=== PATIENT | female | born 1975 | race Two or more races ===

== ENCOUNTER 2025-03-08 22:45 | Emergency (ER) | payer MEDICAID, SELFPAY ==
[2025-03-08 23:04] VITALS: BP 128/76; PULSE 74; RESP 18; TEMP 36.8; O2SAT 99; BMI 22.3
--- NOTE | 2025-03-08 23:42 | XR_ITS ---
Examination: CT brain head without contrast. 2-D sagittal coronal reconstructions Date and time of exam:March 08, 2025 at 1153 hours INDICATIONS: Headaches 5 days CTDI: vol (mGy):43 DLP: (mGycm):846 Technique: Multiple CT axial sections of the brain have been obtained, 5 mm slice thickness. Contrast has not been administered. 2-D sagittal, coronal reconstructions have been obtained Low dose protocols were performed. One or more of the following dose reduction techniques were used; automated exposure control, adjustment of the mA and/or KV according to patient size, use of iterative reconstruction technique. Findings: No significant ventricular enlargement. Intra-axial or extra-axial hemorrhage density is not seen. No mass effect or midline shift Basal cisterns are not remarkable. Fourth ventricle is midline. Cranial vault intact. Impression: Negative for acute hemorrhage, mass effect or midline shift
--- NOTE | 2025-03-08 23:47 | EDNOTE_ITS ---
<Statement entered by La Melchor MD - 03/09/25 18:32> As co-signing physician, I was present and available for consult prn. I concur with the plan and care as documented by the midlevel provider. ED Headache RME/HPI General Chief Complaint: Headache Stated Complaint: Neck pain since today Headache for 5 days Time Seen by Provider: 03/08/25 23:41 Arrival date/time: 03/08/25 22:45 49F with history of DM presents to ED with 5 days of ARANGO/neck pain. Patient denies fall/trauma, fevers/chills, URI symptoms, AMS, seizures, and N/V. Limitations: no limitations Related Data Home Medications ?Medication ?Instructions ?Recorded ?Confirmed metformin 1,000 mg tablet 1,000 mg PO BID 03/14/21 simvastatin 20 mg tablet 20 mg PO QDAY 03/14/2103/14 sitagliptin phosphate 100 mg 100 mg PO QDAY 03/14/21 0 03/14/21 tablet (Januvia) Previous Rx's ?Medication ?Instructions ?Recorded hydrocodone 5 mg-acetaminophen 325 1 tab PO BID PRN pa in #10 tabs 12/09/23 mg tablet ibuprofen 600 mg tablet 600 mg PO Q6H #30 tabs 12/08 Allergies Allergy/AdvReac Type Severity Reaction Status Date / Time No Known Allergies Allergy Verified 12/09/23 14:46 Review of Systems Review of Systems Systems Reviewed: All systems reviewed, normal except as documented Constitutional Constitutional: Reports system reviewed and no additional complaints, except as documented, Reports as per HPI, Denies fever(s) and Reports headache(s) ENT Ears, Nose, Mouth, and Throat: Denies disequilibrium, Reports headache(s) and Reports neck pain Cardiovascular Cardiovascular: Reports system reviewed and no additional complaints, except as documented, Denies chest pain and Denies dyspnea Respiratory Respiratory: Reports system reviewed and no additional complaints, except as documented, Denies cough and Denies dyspnea Gastrointestinal Gastrointestinal: Reports system reviewed and no additional complaints, except as documented, Denies abdominal pain, Denies nausea and Denies vomiting Musculoskeletal Musculoskeletal: Reports as per HPI and Reports neck pain Neurologic Neurologic: Reports system reviewed and no additional complaints, except as documented, Denies confusion, Denies disequilibrium and Reports headache(s) Psychiatric Psychiatric: Denies confusion Past Medical History Social History SMOKING STATUS: Never smoker ED Exam General Limitations: Present no limitations General appearance: Present alert and in no apparent distress Head Head exam: Present atraumatic Eye Eye exam: Present normal appearance, PERRL and EOMI ENT ENT exam: Present normal exam, normal oropharynx and mucous membranes moist Neck Neck exam: Present normal inspection, full ROM and trachea midline Chest Chest inspection: Present normal inspection and symmetric chest wall rise Respiratory Respiratory exam: Present normal lung sounds bilaterally Cardiovascular Cardiovascular exam: Present regular rate, normal rhythm and normal heart sounds Abdominal Exam Abdominal exam: Present soft and normal bowel sounds Extremities Exam Extremities exam: Present normal inspection and full ROM Back Exam Back exam: Present normal inspection and full ROM Neurological Exam Neurological exam: Present alert, oriented X3 and CN II-XII intact Psychiatric Psychiatric exam: Present normal affect and normal mood Skin Skin exam: Present warm, dry, intact and normal color Course Quality Measures none Orders Category Date Time Status CT head/brain wo con Stat Exams 03/08/25 23:42 Taken Ketorolac Inj [Toradol Inj] Med 03/09/25 01:26 Discontinued 60 mg IM X1 ONE Metoclopramide [Reglan] Med 03/08/25 23:42 Discontinued 10 mg PO X1 ONE SUMAtriptan INJ [Imitrex Inj] Med 03/08/25 23:42 Discontinued 6 mg SC X1 ONE Vital Signs Vital signs: Vital Signs Temperature 98.2 F 03/08/25 23:04 Pulse Rate 74 03/08/25 23:04 Respiratory Rate 18 03/08/25 23:04 Blood Pressure 128/76 03/08/25 23:04 Pulse Oximetry (%) 99 03/08/25 23:04 Oxygen Delivery Method Room Air 03/08/25 23:04 O2 at 99% on RA and WNLs Headache MDM Narrative MDM Narrative:: 49F with history of DM presents to ED with 5 days of ARANGO/neck pain. Patient denies fall/trauma, fevers/chills, URI symptoms, AMS, seizures, and N/V. Physical exam reveals normal pupil response and EOM. CN II-XII grossly intact. Speech normal. Gait normal. Strength equal bilaterally. Neck ROM intact. Patient is afebrile, calm, and alert. CT unremarkable. Meds improved symptoms. Patient data External records reviewed:: [facility] previous records Clinical information provided by:: patient Social determinants that could affect healthcare access:: none Patient has the following chronic illnesses:: DM How is presenting disease/condition affected by chronic disease/condition?: exacerbated by Evaluation data The following diagnostics were reviewed and interpreted by me:: radiology exam(s) Lab and/or radiology exams considered but not ordered:: ordered Interpretation Summary: above Medications / Prescriptions Medications or Prescriptions considered but not ordered:: ordered Medication administrations:: Medication Administration History Discontinued Medications Ketorolac Tromethamine (Ketorolac Inj 60 Mg/2 Ml Vial) 60 mg IM X1 ONE Stop: 03/09/25 01:27 Last Admin: 03/09/25 01:32 Dose: 60 mg Documented By: Metoclopramide HCl (Metoclopramide 5 Mg Tablet) 10 mg PO X1 ONE Stop: 03/08/25 23:43 Last Admin: 03/09/25 00:11 Dose: 10 mg Documented By: Sumatriptan Succinate (Sumatriptan Inj 6 Mg/0.5 Ml Vial) 6 mg SC X1 ONE Stop: 03/08/25 23:43 Last Admin: 03/09/25 00:12 Dose: 6 mg Documented By: above Consultations Consultation(s) initiated? (list below): No Diagnosis Differential diagnosis headache: migraine, tension headache, subarachnoid hemorrhage, headache, meningitis, sinusitis and postconcussion syndrome Most likely diagnosis given after review of the tests above:: ARANGO Admission Indicated Admission indicated?: not indicated Admission Request Was there a request for admission?: No Disposition Plan Disposition Plan: Discharge Discharge Attestation Discharge Attestation: The patient and all family members were given an opportunity to ask questions and understood the discharge instructions. Discharge instructions specifically effects, indications for sooner follow up or return to the emergency department, and the expected course of current diagnosis. Patient condition: Stable Discharge Plan Plan Patient Disposition: HOME (Self Care) Discharge Disposition comment: Stable Prescriptions/Referrals Prescriptions/Med Rec: No Action simvastatin 20 mg tablet 20 mg PO QDAY metformin 1,000 mg tablet 1,000 mg PO BID Januvia 100 mg tablet 100 mg PO QDAY hydrocodone-acetaminophen 5-325 mg tablet 1 tab PO BID MDD 10 PRN (Reason: pain) Qty: 10 0RF ibuprofen 600 mg tablet 600 mg PO Q6H Qty: 30 0RF Referrals: No Primary/Family,Physician [Primary Care Provider] - In 1 week Problem List Clinical Impression: Headache Patient/Caregiver Discharge Instructions Education Materials: Self-Care for Headaches Additional Instructions: Please follow-up with PCP within 24-48 hours and return immediately if symptoms worsen. Print Language: Mongolian Stand Alone Forms: Patient Portal Info Letter PA/PAPIER MACHE' MOLDER Supervising Physician PA/PAPIER MACHE' MOLDER Supervising Physician: Dr. Melchor
[2025-03-09] MEDS: METOCLOPRAMIDE 5 MG TABLET 10 MG PO (00:11)
[2025-03-09] MEDS: SUMAtriptan INJ 6 MG/0.5 ML VIAL SC (00:12)
--- NOTE | 2025-03-09 01:08 | PRELIM_ITS ---
CT scan of the head without intravenous contrast (axial sections with sagittal and coronal reformats). March 08, 2025 2355 hours Clinical History: ARANGO 5 days No prior study is available for comparison. Findings: No evidence of intracranial hemorrhage, mass effect or midline shift. The ventricles and CSF spaces are unremarkable. The calvarium is unremarkable. The mastoid air cells and the visualized paranasal sinuses are clear. Impression: No evidence of intracranial hemorrhage, mass effect or midline shift. Report Electronically Signed By: Dereck Metz 03/09/2025 1:08:28 AM [EST]
[2025-03-09] MEDS: KETOROLAC INJ 60 MG/2 ML VIAL IM (01:32)
== END 2025-03-09 01:46 | disposition home or self-care (01) ==
PROVIDERS: Emergency Provider Emergency Medicine
DX: R51.9 Headache, unspecified (principal)
CPT/HCPCS: 70450; 96372; 99284; J1885; J3030; A9270